=== PATIENT | female | born 1960 | race American Indian/Alaskan Native ===

== ENCOUNTER 2019-08-31 18:42 | Emergency (ER) | payer OTHER, BC ==
[2019-08-31] MEDS ORDERED: oxyCODONE /ACETAMINOPHEN 5-325MG TAB PO ONE ×2 (20:01→23:12)
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
[2019-08-31] MEDS ORDERED: KETOROLAC 30 MG/1 ML INJ IM ONE (23:12)
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
[2019-09-01 02:03] VITALS: BP 122/71
== END 2019-09-01 02:04 | disposition home or self-care (01) ==
LOC: ED 18:42
DX: M25.562 Pain in left knee (principal); M54.9 Dorsalgia, unspecified; R51 Headache; M79.605 Pain in left leg; V49.49XA Driver injured in collision with other motor vehicles in traffic accident, initial encounter; Y93.89 Activity, other specified; Y92.89 Other specified places as the place of occurrence of the external cause; Y99.8 Other external cause status
CPT/HCPCS: 29505; 70450; 71045; 72100; 72125; 73562; 73590; 96372; 99284; J1885